=== PATIENT | male | born 1980 | race Caucasian/White ===

== ENCOUNTER → 2017-09-24 | Outpatient (CLI) | payer BC ==
[2017-09-24 09:28] LABS: ADD MAN DIFF? NO
[2017-09-24 09:32] LABS: BASO # 0.1 x10^3/uL (0.0-0.2); BASO % 1 % (0-3); EOS # 0.7 x10^3/uL (0.0-0.7); EOS % 7 % (0-3); HEMATOCRIT 49.4 % (39.0-53.0); HEMOGLOBIN 16.9 g/dL (13.0-17.5); LYMPH # 2.5 x10^3/uL (1.0-4.8); LYMPH % 26 % (24-48); MEAN CORPUSCULAR HEMOGLOBIN 32 pg (25-35); MEAN CORPUSCULAR HGB CONC 34 g/dL (31-37); MEAN CORPUSCULAR VOLUME 94 fL (79-100); MONO # 0.6 x10^3/uL (0.0-1.1); MONO % 7 % (0-9); NEUT # 5.8 x10^3uL (1.8-7.7); NEUT % 60 % (31-73); PLATELET COUNT 247 x10^3/uL (140-400); RED BLOOD COUNT 5.26 x10^6/uL (4.30-5.70); RED CELL DISTRIBUTION WIDTH 12.7 % (11.5-14.5); WHITE BLOOD COUNT 9.6 x10^3/uL (4.0-11.0)
[2017-09-24 09:42] LABS: ANION GAP 10 (6-14); BLOOD UREA NITROGEN 13 mg/dL (8-26); CALCIUM 9.5 mg/dL (8.5-10.1); CARBON DIOXIDE 29 mmol/L (21-32); CHLORIDE 101 mmol/L (98-107); CREATININE 0.8 mg/dL (0.7-1.3); GFR 109.4; GLUCOSE 110 mg/dL (70-99); POTASSIUM 3.8 mmol/L (3.5-5.1); SODIUM 140 mmol/L (136-145)
== END | disposition home or self-care (01) ==
LOC: SURGPAT 08:48
DX: Z01.818 Encounter for other preprocedural examination (principal); K43.9 Ventral hernia without obstruction or gangrene; K42.9 Umbilical hernia without obstruction or gangrene
CPT/HCPCS: 36415; 80048; 85025

== ENCOUNTER 2017-09-25 06:28 | Day surgery (SDC) | payer BC ==
[~2017-09-25 06:28] MED LIST: BUPIVACAINE MPF 0.5% 30 ML VIAL.
[2017-09-25] MEDS ORDERED: fentaNYL PF VIAL 100 MCG/2 ML VIAL IV (07:00)
[2017-09-25] MEDS ORDERED: LIDOCAINE 1% PF 2 ML VIAL. ID (07:00)
[2017-09-25] MEDS ORDERED: PROCHLORPERAZINE 10 MG/2 ML VIAL. IV (07:00)
[2017-09-25] MEDS: IV RINGERS,LACTATED 1000ML 1,000 ML IV ×2 (07:06→10:19)
[2017-09-25] MEDS ORDERED: SUCCINYLCHOLINE 200 MG/10 ML VIAL. (07:21)
[2017-09-25] MEDS ORDERED: LIDOCAINE 1% PF 5 ML VIAL. (07:22)
[2017-09-25] MEDS ORDERED: PROPOFOL 20 ML IV ×2 (07:22→08:05)
[2017-09-25] MEDS ORDERED: DEXAMETHASONE SOD PHOS 20 MG/5 ML VIAL. (07:22)
[2017-09-25] MEDS ORDERED: ROCURONIUM 50 MG/5 ML VIAL. (07:22)
[2017-09-25] MEDS ORDERED: ONDANSETRON PF 4 MG/2 ML VIAL. (07:22)
[2017-09-25] MEDS ORDERED: fentaNYL PF VIAL 250 MCG/5 ML VIAL (07:24)
[2017-09-25] MEDS ORDERED: MIDAZOLAM HCL/PF 2 MG/2 ML VIAL. (07:24)
[2017-09-25] MEDS ORDERED: levoFLOXacin 500mg PREMIX 500 MG/100 ML BAG IV (07:30)
[2017-09-25] MEDS ORDERED: GLYCOPYRROLATE 1 MG/5 ML VIAL. (08:03)
[2017-09-25] MEDS ORDERED: NEOSTIGMINE 10 MG/10 ML VIAL. (08:03)
[2017-09-25] MEDS: BUPIVAC MPF-EPI 0.5%-1:200000 30 ML VIAL. INJ (08:32)
[2017-09-25] MEDS ORDERED: SEVOFLURANE 31 TO 60 MINUTES. IH (08:38)
[2017-09-25] MEDS: ONDANSETRON PF 4 MG/2 ML VIAL. IV (09:24)
[2017-09-25] MEDS: fentaNYL PF VIAL 100 MCG/2 ML VIAL IV ×2 (09:25→09:36)
[2017-09-25] MEDS: oxyCODONE/APAP 7.5/325 1 TAB TABLET PO (09:59)
[2017-09-25] MEDS: MORPHINE SULFATE 4 MG/ML DISP.SYRIN. IV ×3 (10:12→10:37)
== END 2017-09-25 11:25 | disposition home or self-care (01) ==
LOC: SURG 06:28
DX: K43.2 Incisional hernia without obstruction or gangrene (principal); I10 Essential (primary) hypertension; Z90.49 Acquired absence of other specified parts of digestive tract; Z88.0 Allergy status to penicillin; E66.09 Other obesity due to excess calories; Z68.38 Body mass index [BMI] 38.0-38.9, adult
CPT/HCPCS: 49560; C1769; J0330; J1100; J1956; J2250; J2270; J2405; J2704; J2710; J3010; J3490